=== PATIENT | female | born 1980 | race Caucasian/White ===

== ENCOUNTER → 2022-02-14 15:45 | Outpatient (BNVA) | payer MEDICARE, MEDICAID, SELFPAY | PROVIDERS: PCP Physical Medicine & Rehabilitation; Visit Provider Internal Medicine | DX: M96.1 Postlaminectomy syndrome, not elsewhere classified (principal); Z79.899 Other long term (current) drug therapy; Z79.891 Long term (current) use of opiate analgesic | CPT/HCPCS: 99202 ==

== ENCOUNTER 2022-03-31 15:15 | Outpatient (REF) | payer MEDICARE, MEDICAID, SELFPAY ==
--- NOTE | ~2022-03-31 | XR_ITS ---
EXAMINATION: XR LUMBOSACRAL SPINE WITH OBLIQUES CLINICAL INFORMATION: Postlaminectomy syndrome COMPARISON: None TECHNIQUE: 8 views of the lumbar spine, including oblique and flexion views. FINDINGS: Minimal retrolisthesis of L4 on L5. Vertebral body heights are maintained. No compression deformities are seen. Mild disc height narrowing at L5-S1. Endplate spurring at L5. Multilevel facet degeneration. No significant subluxation on the flexion view. XR/XR lumbar spine 6V w bending IMPRESSION: No acute findings. Lumbar spondylosis as above
== END 2022-03-31 15:16 | disposition home or self-care (01) ==
LOC: HO.XRAY 15:15
PROVIDERS: Visit Provider Internal Medicine
DX: M96.1 Postlaminectomy syndrome, not elsewhere classified (principal)
CPT/HCPCS: 72114

== ENCOUNTER → 2022-06-27 15:19 | Outpatient (BNVA) | payer MEDICARE, MEDICAID, SELFPAY | PROVIDERS: PCP Physical Medicine & Rehabilitation; Visit Provider Internal Medicine | DX: M96.1 Postlaminectomy syndrome, not elsewhere classified (principal); M62.838 Other muscle spasm; G89.4 Chronic pain syndrome | CPT/HCPCS: 99212 ==

== ENCOUNTER 2023-11-29 11:25 | Outpatient (AMB) | payer MEDICARE, MEDICAID, SELFPAY ==
--- NOTE | 2023-11-29 11:28 | A.OFFVIS_ITS ---
Vital Signs 3 11/29/23 11:29 Height 5 ft 4 in Weight 182 lb BMI 31.2 BP 118/68 Blood Pressure Location Lt brachial Position Sitting Respiration 14 Pulse 109 H Pulse Source Pulse Oximeter Pulse Oximetry (%) 95 Oxygen Delivery Method Room Air Intake Visit Reasons: SIJ pain Allergies No Known Allergies Allergy (Verified 11/29/23 11:30) Medication List - Last Reconciled 11/29/23 by Fior Frias LPN alprazolam 2 mg PO TID PRN dextroamphetamine-amphetamine 20 mg 1 tab PO TID gabapentin 300 mg PO Q8H oxycodone 15 mg PO QID quetiapine 300 mg PO BEDTIME suvorexant (Belsomra) 20 mg PO BEDTIME PRN HPI HPI SIJ pain: Details: 43-year-old female who presents to the office for evaluation of sacroiliac joint injection. Since our last meeting, she has undergone C7 ACDF with significant improvement in her upper extremity/neck symptoms. She continues to complain of of worsening lower back pain, which she describes as a stabbing pain, which radiates down her left leg at times. She has been having episodes of left leg spasms that she describes as Charley horses. She also has pain in the middle of her back that is worse with lumbar range of motion. History is notable for an L4-5 discectomy and laminectomy without fusion. She is still smoking cigarettes, but states has been cutting down. Review of Systems Const All systems reviewed & are unremarkable except as noted in HPI and below Physical Exam Vital Signs: Last Vital Signs Pulse 109 H 11/29/23 11:29 Resp 14 11/29/23 11:29 BP 118/68 11/29/23 11:29 Pulse Ox 95 11/29/23 11:29 Oxygen Delivery Method Room Air 11/29/23 11:29 BMI result Body Mass Index 31.2 General: Appears afebrile. Alert and oriented. Mood and affect appropriate. Follows and participates in conversation appropriately. Respiratory effort is unlabored. Able to transition from sit to stand unassisted. Results Reviewed Results Reviewed: 03/31/22: Lumbar Spine X-Ray FINDINGS: Minimal retrolisthesis of L4 on L5. Vertebral body heights are maintained. No compression deformities are seen. Mild disc height narrowing at L5-S1. Endplate spurring at L5. Multilevel facet degeneration. No significant subluxation on the flexion view. MRI cervical spine 2021 Reviewed lumbar spine MRI images on [facility]. There are Modic type changes in the vertebral endplates at the superior L4, inferior L4, superior L5 vertebral bodies. There is minor hypertrophy of the facet joints at L5-S1 level, with no multifidus muscle changes. There is loss of intradiscal fluid signal in the L3-4 and L4-5 discs. There is a bulge of the L4- 5 disc that compresses the traversing L5 nerve root on the left side. Assessment & Plan Assessment & Plan (1) Lumbar post-laminectomy syndrome: Code(s): M96.1 - Postlaminectomy syndrome, not elsewhere classified Category: Medical (2) Lumbar radicular syndrome: Code(s): M54.16 - Radiculopathy, lumbar region Category: Medical (3) Vertebrogenic low back pain: Code(s): M54.51 - Vertebrogenic low back pain Category: Medical (4) Cervical radiculitis: Code(s): M54.12 - Radiculopathy, cervical region Category: Medical Plan Discussed returning for formal physical therapy for her low back pain symptoms that are a combination of vertebral endplate degeneration, intervertebral disc degeneration, lumbar disc bulging with subsequent nerve root irritation and radicular pain syndrome. She has some post-laminectomy changes as well that could also be contributing. I counseled her that we will trial physical therapy for the next 3-6 months. If she gets significant improvement then she can continue on with that course. If she does not get significant relief, then we can consider multiple different interventions including trial of temporary nerve stimulation, diagnostic injections of the facets, transforaminal epidural steroid injections and basivertebral nerve ablation. Patient and her mother who is accompanying her today are in agreement with the plan. Scribed for Dr. Ji by Deepti Fontanez, medical assistant float, on 11/29/2023. I, Dr. Ji, have personally reviewed and agree with the information entered by the scribe. Coding Level of Care Code Est Pt Level 4 (04464) Diagnoses Lumbar post-laminectomy syndrome M96.1 Lumbar radicular syndrome M54.16 Vertebrogenic low back pain M54.51 Cervical radiculitis M54.12
[2023-11-29 11:29] VITALS: BP 118/68; PULSE 109; RESP 14; O2SAT 95; BMI 31.2
== END 2023-11-29 12:14 | disposition home or self-care (01) ==
PROVIDERS: PCP Physical Medicine & Rehabilitation; Visit Provider Internal Medicine
DX: M96.1 Postlaminectomy syndrome, not elsewhere classified (principal); M54.16 Radiculopathy, lumbar region; M54.51 Vertebrogenic low back pain; M54.12 Radiculopathy, cervical region
CPT/HCPCS: 99214

== ENCOUNTER → 2023-11-29 11:25 | Outpatient (BNVA) | payer MEDICARE, MEDICAID, SELFPAY | PROVIDERS: PCP Physical Medicine & Rehabilitation; Visit Provider Internal Medicine | DX: M96.1 Postlaminectomy syndrome, not elsewhere classified (principal); M54.16 Radiculopathy, lumbar region; M54.51 Vertebrogenic low back pain; M54.12 Radiculopathy, cervical region | CPT/HCPCS: 99212 ==